=== PATIENT | female | born 1950 | race Two or more races ===

== ENCOUNTER 2022-01-02 12:45 | Inpatient (IN) | payer OTHER ==
[~2022-01-02] VITALS: Ht 157.5 cm; Wt 50.3 kg
[2022-01-02] MEDS ORDERED: RESTORA CAPSUL1 EACH PO (14:01)
[2022-01-02] MEDS ORDERED: SYNTHROID50 MCG PO (14:01)
[2022-01-02] MEDS ORDERED: PROTONIX40 MG PO (14:02)
[2022-01-02] MEDS ORDERED: LUNESTA2 MG PO (14:02)
[2022-01-09] MEDS ORDERED: ULTRACET PO (09:26)
[2022-01-09] MEDS ORDERED: HYOSCYAMINE0.125 M1 SL (09:26)
[2022-01-09] MEDS ORDERED: PEPCID AC20 MG PO (09:27)
[2022-01-09] MEDS ORDERED: INTESTINEX680 M1 PO (09:27)
== END 2022-01-09 14:52 | disposition home or self-care (01) | DRG 331 ==
LOC: SURH 01-06 06:05 → O/R 01-06 06:05 → SURG 01-06 09:00 → SURH 01-06 14:24
PROVIDERS: ADMIT Surgery; ATTEND Surgery
PROC: 0DBP4ZZ Excision of Rectum, Percutaneous Endoscopic Approach (ICD-10-PCS; 2022-01-06)
PROC: 0DJ08ZZ Inspection of Upper Intestinal Tract, Via Natural or Artificial Opening Endoscopic (ICD-10-PCS; 2022-01-06)
PROC: 0DTN4ZZ Resection of Sigmoid Colon, Percutaneous Endoscopic Approach (ICD-10-PCS; principal; 2022-01-06 09:00)
DX: K57.20 Diverticulitis of large intestine with perforation and abscess without bleeding (principal); E03.8 Other specified hypothyroidism; G47.00 Insomnia, unspecified; R19.4 Change in bowel habit; Z20.822 Contact with and (suspected) exposure to COVID-19